=== PATIENT | male | born 1950 | race Two or more races ===

== ENCOUNTER 2018-06-06 16:14 | Inpatient (IN) | payer OTHER, MEDICARE ==
[~2018-06-06] VITALS: Ht 182.9 cm; Wt 76.7 kg
--- NOTE | 2018-06-06 16:20 | NUR ---
pt bibra to er bed 05. per report, possible syncopal episode. upon ems arrival pt was already up and went to his trailer. pt denies cp, or any medical discomfort. vss. awaiting md kraus.
--- NOTE | 2018-06-06 16:22 | NUR ---
dr chen at bedside for eval.
[2018-06-06 16:50] LABS: BASOPHILS % (AUTO) 0.3 % (0.0-2.0); EOSINOPHILS % (AUTO) 1.2 % (0.0-6.0); HEMATOCRIT 35 % (39-51); HEMOGLOBIN 12.2 g/dL (13.5-17.5); LYMPHOCYTES # (AUTO) 1.7 /CMM (0.8-4.8); LYMPHOCYTES % (AUTO) 22.7 % (20.0-44.0); MEAN CORPUSCULAR HEMOGLOBIN 30 PG (26.0-33.0); MEAN CORPUSCULAR HGB CONC 34 g/dl (31.0-36.0); MEAN CORPUSCULAR VOLUME 86 fL (80-96); MONOCYTES # (AUTO) 0.4 /CMM (0.1-1.30); MONOCYTES % (AUTO) 5.1 % (2.0-12.0); NEUTROPHILS # (AUTO) 5.4 /CMM (1.8-8.9); NEUTROPHILS % (AUTO) 70.7 % (43.0-81.0); PLATELET COUNT (AUTO) 250 /CMM (150-450); RED BLOOD CELL COUNT(AUTO) 4.11 MIL/uL (4.5-6.0); WHITE BLOOD COUNT (AUTO) 7.6 K/uL (4.3-11.0)
--- NOTE | 2018-06-06 16:55 | NUR ---
pt to radiology for head ct scan via [facility].
[2018-06-06 17:01] LABS: CALCIUM, SERUM 8.3 mg/dL (8.5-10.1); CARBON DIOXIDE 20 mmol/L (21-32); CHLORIDE 107 mmol/L (98-107); CREATININE 4.7 mg/dL (0.6-1.3); GLUCOSE 136 mg/dL (74-106); POTASSIUM 4.5 mmol/L (3.5-5.1); SODIUM SERUM 138 mmol/L (136-145); UREA NITROGEN, BLOOD 58 mg/dL (7-18)
[2018-06-06 17:05] LABS: INR 1.03 (0.85-1.15)
[2018-06-06 17:07] LABS: ALANINE AMINOTRANSFERASE 15 U/L (12-78); ALBUMIN 3.3 g/dL (3.4-5.0); ALKALINE PHOSPHATASE 44 U/L (46-116); ASPARTATE AMINOTRANSFERASE 18 U/L (15-37); BILIRUBIN,DIRECT 0.1 mg/dL (0.0-0.2); BILIRUBIN,TOTAL 0.2 mg/dL (0.2-1.0); TOTAL PROTEIN, SERUM 6.7 g/dL (6.4-8.2)
[2018-06-06 17:09] LABS: TROPONIN I < 0.017 ng/mL (0.00-0.056)
[2018-06-06 17:19] LABS: ALCOHOL, BLOOD < 3 mg/dL (0-0); MAGNESIUM 2.2 mg/dL (1.8-2.4)
--- NOTE | 2018-06-06 17:40 | NUR ---
pt still unable to plrovide urine sample. urinal left at bedside.
--- NOTE | 2018-06-06 19:30 | NUR ---
DR CRISTIANA KOHLI FOR PANEL ADMISSION
--- NOTE | 2018-06-06 19:57 | NUR ---
PT ASSIGNED TELE [id number]
--- NOTE | 2018-06-06 20:09 | NUR ---
report given to daria. pt awaiting transfer to floor.
[2018-06-06] MEDS ORDERED: IV NS 0.9% 1,000 ML IV PRN (20:17)
[2018-06-06] MEDS ORDERED: HYDROCODONE/APAP 5/325MG 1 EACH TABLET PO PRN (20:30)
[2018-06-06] MEDS ORDERED: ONDANSETRON HCL/PF 4 MG/2 ML VIAL IVP PRN (20:30)
[2018-06-06] MEDS ORDERED: MORPHINE SULFATE INJ 2 MG/ML DISP.SYRIN IV PRN (20:30)
[2018-06-06] MEDS ORDERED: MAGNESIUM HYDROXIDE 30 ML UDC PO PRN (20:30)
[2018-06-06] MEDS ORDERED: ZOLPIDEM TARTRATE 5 MG TABLET PO PRN (20:30)
[2018-06-06] MEDS ORDERED: Z GUARD REMEDY 2 OZ OINT TP PRN (20:30)
[2018-06-06] MEDS ORDERED: MAG HYDROX/AL HYDROX/SIMETH 30 ML UDC PO PRN (20:30)
[2018-06-06 21:30] VITALS: BP 143/73
--- NOTE | 2018-06-06 21:35 | NUR ---
ANTIQUE CLOCK REPAIRER NOTES STARTED ON IVF NS 1LITER @ 75ML/HR RATE,INFUSING VIA IV PUMP ON LEFT AC.
--- NOTE | 2018-06-06 21:57 | NUR ---
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
--- NOTE | 2018-06-06 22:30 | NUR ---
INDUSTRY SEGMENT SPECIALIST NOTES SEEN BY DR ZENDEJAS,NO NEW ORDERS.
[2018-06-07 04:00] VITALS: BP 123/71
[2018-06-07 06:27] LABS: BASOPHILS % (AUTO) 0.3 % (0.0-2.0); EOSINOPHILS % (AUTO) 1.1 % (0.0-6.0); HEMATOCRIT 37 % (39-51); HEMOGLOBIN 12.2 g/dL (13.5-17.5); LYMPHOCYTES # (AUTO) 1.9 /CMM (0.8-4.8); LYMPHOCYTES % (AUTO) 18.7 % (20.0-44.0); MEAN CORPUSCULAR HEMOGLOBIN 30 PG (26.0-33.0); MEAN CORPUSCULAR HGB CONC 34 g/dl (31.0-36.0); MEAN CORPUSCULAR VOLUME 89 fL (80-96); MONOCYTES # (AUTO) 0.6 /CMM (0.1-1.30); MONOCYTES % (AUTO) 5.4 % (2.0-12.0); NEUTROPHILS # (AUTO) 7.7 /CMM (1.8-8.9); NEUTROPHILS % (AUTO) 74.5 % (43.0-81.0); PLATELET COUNT (AUTO) 243 /CMM (150-450); RDW COEFFICIENT OF VARIATION 17.5 (11.5-15.0); RED BLOOD CELL COUNT(AUTO) 4.09 MIL/uL (4.5-6.0); WHITE BLOOD COUNT (AUTO) 10.3 K/uL (4.3-11.0)
[2018-06-07 06:49] LABS: CALCIUM, SERUM 7.9 mg/dL (8.5-10.1); CREATININE 3.3 mg/dL (0.6-1.3); MAGNESIUM 2.2 mg/dL (1.8-2.4); PHOSPHORUS 3.7 mg/dL (2.5-4.9); POTASSIUM 4.9 mmol/L (3.5-5.1)
--- NOTE | 2018-06-07 07:04 | NUR ---
VISUAL SPECIALIST NOTES FAIRLY RESTED SINCE ADMISSION.DENIES PAIN,NO SOB,SINUS ON TELE MONITOR.IN NO ACUTE DISTRESS.WILL ENDORSE TO DAY NURSE FOR POOJA
[2018-06-07 08:00] VITALS: BP 134/70
--- NOTE | 2018-06-07 08:00 | NUR ---
mechanical engineering advisor Notes Pt in bed at lowest position, A/O x3, peripheral IV intact, no SOB or acute distress, denies pain. Call light within reach, will continue to monitor.
[2018-06-07] MEDS: PANTOPRAZOLE 40 MG TABLET.DR PO SCH (08:06)
[2018-06-07] MEDS: IV NS 0.9% 1,000 ML IV PRN ×3 (08:10→23:06)
[2018-06-07 08:51] LABS: THYROID STIMULATING HORMONE 0.796 uIU/mL (0.358-3.74)
[2018-06-07] MEDS ORDERED: HYDR25TA4 PO (08:54)
[2018-06-07] MEDS ORDERED: ASPI-1169 PO (08:54)
[2018-06-07] MEDS ORDERED: LISI40TA4 PO (08:54)
[2018-06-07 10:00] VITALS: BP_SYST 117; BP_SYST 121; BP_SYST 123; BP_DIAS 61; BP_DIAS 64; BP_DIAS 65
--- NOTE | 2018-06-07 11:13 | NUR ---
Social service consult requested by Dr. Schaefer for homeless-lives in his car. Pt. is a 68 year old male who was admitted to [facility] for syncope. SW met with pt. beside. Pt. is Iranian speaking. Pt is alert and oriented x 4. Pt. is very friendly and cooperative with SW during the assessment. SW had RN Gail assist in translation. Pt. states he lives with his in [facility] in a home located at [address] [place] [address]. However, pt. stays home at times or travels and lives in his van at times which has a fridge and other amenities. 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 Pt's lifestyle includes being on the road. Pt. states he goes fishing or hangs out and plays chess with other Armenians he finds on his way while traveling. Pt's Joceline lives in [facility] for some months and [place] for the rest of the other months. Pt. receives approximately $980 per month in social security income. Pt's emergency contact is his Joceline . Pt. states he does not need any social service resources at this time. RJ updated [facility] GINA Burdick with the aforementioned information. No other social service needs are requested at this time. SW is available, if needed.
[2018-06-07 11:33] LABS: APPEARANCE,URINE CLEAR (CLEAR); BILIRUBIN,URINE NEGATIVE (NEGATIVE); BLOOD, URINE 1+ Ery/uL (NEGATIVE); COLOR,URINE YELLOW (YELLOW); KETONES,URINE NEGATIVE (NEGATIVE); LEUKOCYTE ESTERASE ,URINE NEGATIVE (NEGATIVE); NITRITE, URINE NEGATIVE (NEGATIVE); PH,URINE 5.5 (5.0-8.0); PROTEIN,URINE NEGATIVE (NEGATIVE); UGLUCOSE NEGATIVE (NEGATIVE); UROBILINOGEN,URINE 0.2 EU/dL (0.2)
[2018-06-07 11:55] LABS: BACTERIA,URINE None seen /HPF (None Seen); SQUAMOUS EPITHELIAL CELL,UR None Seen /HPF (None Seen); WBC,URINE 0-2 /HPF (0-3)
[2018-06-07 12:00] VITALS: BP 150/72
[2018-06-07 16:00] VITALS: BP 125/62
--- NOTE | 2018-06-07 16:40 | NUR ---
SOLE POLISHER NOTES PATIENT REPORTS HAVING DIARRHEA X2 ALSO STATES HE HAD ONE EPISODE YESTERDAY BEFORE HOSPITALIZATION. DR. SHEREE JACOBO MADE AWARE ORDERS FOR LOMOTIL 1 PO Q6HRS NEEDED. ORDERS NOTED AND CARRIED OUT. PATIENT ALSO REQUESTING NICOTINE PATCH DR. SHEREE JACOBO ORDERED NICOTINE PATCH EVERY 24HRS 21MG NOTED AND CARRIED OUT.
[2018-06-07] MEDS ORDERED: DIPHENOXYLATE HCL/ATROP SULF 1 UDTAB TABLET PO PRN (17:00)
[2018-06-07] MEDS: NICOTINE PATCH (21MG) 21 MG PATCH.TD24 TD SCH (17:51)
--- NOTE | 2018-06-07 19:15 | NUR ---
MS RN INITIAL NOTES Report received at bedside. Patient received in bed, awake and comfortable. Alert and oriented x3, verbally responsive. Not in any type of distress. Safety measures in place. Bed in lowest position with bed alarm on with call light within reach. Will continue to monitor and assess patient.
--- NOTE | 2018-06-07 19:36 | NUR ---
TURKISH LINE ATTENDANT NOTES PATIENT IN BED RESTING NO SOB OR ACUTE DISTRESS NOTED. ALL DUE MEDICATIONS ADMINISTERED. ALL NEEDS MET ENDORSED CARE TO PM SHIFT.
--- NOTE | 2018-06-07 19:47 | NUR ---
MS TELE INITIAL NOTES Tele monitor shows Sinus Leonard; HR 54
[2018-06-07 20:02] VITALS: BP 137/70
[2018-06-07] MEDS: ACETAMINOPHEN 325 MG TABLET PO PRN (20:29)
--- NOTE | 2018-06-07 20:29 | NUR ---
PREPLEATER - PRN NOTES Patient complained of headache and requested for pain mgmt. Giving tylenol 650mg PO. Will reassess for effectiveness
[2018-06-08 04:00] VITALS: BP 154/76
--- NOTE | 2018-06-08 04:32 | NUR ---
FINGERNAIL FORMER - ORTHOSTATIC B/P LYIN/76 55 18 98.2 95% SITTIN/64 62 STANDIN/72 60
[2018-06-08 04:34] VITALS: BP_SYST 137; BP_SYST 147; BP_SYST 154; BP_DIAS 64; BP_DIAS 72; BP_DIAS 76
[2018-06-08] MEDS: IV NS 0.9% 1,000 ML IV PRN (06:14)
[2018-06-08 06:30] LABS: BILIRUBIN,TOTAL 0.3 mg/dL (0.2-1.0); CREATININE 2.2 mg/dL (0.6-1.3); MAGNESIUM 1.7 mg/dL (1.8-2.4); PHOSPHORUS 2.8 mg/dL (2.5-4.9); POTASSIUM 5.3 mmol/L (3.5-5.1); TOTAL PROTEIN, SERUM 6.2 g/dL (6.4-8.2)
[2018-06-08 06:41] LABS: BASOPHILS % (AUTO) 0.5 % (0.0-2.0); EOSINOPHILS % (AUTO) 1.2 % (0.0-6.0); HEMATOCRIT 35 % (39-51); HEMOGLOBIN 11.9 g/dL (13.5-17.5); LYMPHOCYTES # (AUTO) 2.2 /CMM (0.8-4.8); LYMPHOCYTES % (AUTO) 24.5 % (20.0-44.0); MEAN CORPUSCULAR HEMOGLOBIN 30 PG (26.0-33.0); MEAN CORPUSCULAR HGB CONC 34 g/dl (31.0-36.0); MEAN CORPUSCULAR VOLUME 89 fL (80-96); MONOCYTES # (AUTO) 0.6 /CMM (0.1-1.30); MONOCYTES % (AUTO) 6.5 % (2.0-12.0); NEUTROPHILS # (AUTO) 6.1 /CMM (1.8-8.9); NEUTROPHILS % (AUTO) 67.3 % (43.0-81.0); PLATELET COUNT (AUTO) 236 /CMM (150-450); RDW COEFFICIENT OF VARIATION 17.3 (11.5-15.0); RED BLOOD CELL COUNT(AUTO) 3.96 MIL/uL (4.5-6.0); WHITE BLOOD COUNT (AUTO) 9.1 K/uL (4.3-11.0)
--- NOTE | 2018-06-08 07:11 | NUR ---
WEB SIZER CLOSING NOTES Patient remained in bed, intermittently sleeping, easily aroused and comfortable. Alert and oriented x3, verbally responsive. No SOB noted. Not in any type of distress. Denies any pain. IV on right forearm #22g: patent and intact with NS @200ml/hr running, tolerating well. All needs anticipated and met. Safety measures in place. Bed in lowest position with bed alarm on and call light within reach. Endorsed to oncoming shift nurse, Emily, RN
--- NOTE | 2018-06-08 07:30 | NUR ---
TELE/RN OPENING NOTE PATIENT ALERT AND ORIENTED X4 WITH EPISODES OF FORGETFULNESS. RESPIRATION REGULAR AND UNLABORED. DENIES PAIN. DENIES SOB. PATIENT IN NO APPARENT DISTRESS. RFA G 22 PATENT AND SALINE LOCKED. BED LOW AND LOCKED. SIDE RAILS UP X3. CALL LIGHT WITHIN REACH. WILL CONTINUE TO MONITOR.
[2018-06-08 08:00] VITALS: BP 157/73
[2018-06-08] MEDS: ACETAMINOPHEN 325 MG TABLET PO PRN (08:47)
[2018-06-08] MEDS: NICOTINE PATCH (21MG) 21 MG PATCH.TD24 TD SCH (08:47)
[2018-06-08] MEDS: PANTOPRAZOLE 40 MG TABLET.DR PO SCH (08:47)
--- NOTE | 2018-06-08 08:47 | NUR ---
TELE/RN NOTE PATIENT COMPLIANT OF HEADACHE 02/06. TYLENOL 650 PO GIVEN. WILL CONTINUE TO MONITOR.
[2018-06-08] MEDS: Magnesium 1GM/D5W 100ML PREMIX 100 ML IV SCH ×2 (08:48→10:17)
--- NOTE | 2018-06-08 09:20 | NUR ---
TELE/RN NOTE PATIENT VERBALIZES TYLENOL BEING EFFECTIVE AND DENIES HAVING HEADACHE AT THIS TIME. PATIENT DENIES HAVING ANY PAIN/DISCOMFORT AT THIS TIME.
[2018-06-08 10:30] VITALS: BP 128/75
--- NOTE | 2018-06-08 10:56 | NUR ---
MS/RN NOTE POST RESIDUAL BLADDER SCAN SHOWED 86ML URINE.
--- NOTE | 2018-06-08 11:18 | NUR ---
MS/RN NOTE MATE FIRST ODALIS IS MADE AWARE OF POTASSIUM LEVEL OF 5.2 AND PER MATE FIRST ODALIS NO NEW ORDER. Addendum: 06/08/18 at 1121 by ALEXIS ARANDA RN MS/RN NOTE MATE FIRST ODALIS IS MADE AWARE OF POTASSIUM LEVEL OF 5.3 AND PER MATE FIRST ODALIS NO NEW ORDER.
[2018-06-08 16:00] VITALS: BP 187/81
[2018-06-08] MEDS ORDERED: SODIUM POLYSTYRENE SULFONATE 15 G/60 ML BOTTLE PO ONE (16:00)
--- NOTE | 2018-06-08 18:00 | NUR ---
MS/RN NOTE PATIENT BLOOD PRESSURE 184/85 AND PULSE 61. ROUTE SALES DRIVER ODALIS IS MADE AWARE AND NEW ORDERS ARE OBTAINED. NOTED AND CARRIED OUT.
[2018-06-08] MEDS: HYDROCHLOROTHIAZIDE 25 MG TABLET PO SCH (18:22)
[2018-06-08] MEDS: LISINOPRIL (10MG) 10 MG TABLET PO SCH (18:23)
--- NOTE | 2018-06-08 18:50 | NUR ---
MS/RN CLOSING NOTE PATIENT ALERT AND ORIENTED X4. DENIES SOB. RESPIRATION REGULAR AND UNLABORED. DENIES PAIN. PATIENT IN NO APPARENT DISTRESS. ABLE TO AMBULATE WITH STAND BY ASSIST. PATIENT IS GIVEN VERBAL CUES TO KEEP SAFETY AWARENESS HIGH. RFA G 22 PATENT AND IV FLUID INFUSING WITH NO S/S INFILTRATION. BED LOW AND LOCKED. SIDE RAILS UP X3. CALL LIGHT WITHIN REACH. WILL ENDORSE TO BLIND LACER.
--- NOTE | 2018-06-08 19:30 | NUR ---
RN NOTES RECEIVED PATIENT IN BED AWAKE, AO X 3, ABLE TO MAKE NEEDS KNOWN. NO ACUTE DISTRESS NOTED. DENIES ANY PAIN AT THIS TIME. IV SITE PATENT, INTACT; FLUSHED. SAFETY REMINDERS GIVEN. ON LOW BED WITH BILATERAL UPPER SIDE RAILS UP. CALL LILLY WITHIN EASY REACH. WILL CONTINUE TO MONITOR.
[2018-06-08 20:00] VITALS: BP 165/84
--- NOTE | 2018-06-09 06:00 | NUR ---
RN NOTES PATIENT IN BED ASLEEP, EASILY AROUSABLE. RESPIRATIONS EVEN. NO SIGNS OF PAIN AT THIS TIME. NEEDS ATTENDED. SAFETY PRECAUTIONS AND COMFORT MEASURES IN PLACE. WILL GIVE REPORT TO DAY SHIFT FOR CONTINUITY OF CARE.
[2018-06-09 06:42] LABS: BASOPHILS # (AUTO) 0.1 /CMM (0.0-0.2); BASOPHILS % (AUTO) 0.5 % (0.0-2.0); EOSINOPHILS % (AUTO) 1.8 % (0.0-6.0); HEMATOCRIT 40 % (39-51); HEMOGLOBIN 13.4 g/dL (13.5-17.5); LYMPHOCYTES # (AUTO) 2.4 /CMM (0.8-4.8); LYMPHOCYTES % (AUTO) 21.9 % (20.0-44.0); MEAN CORPUSCULAR HEMOGLOBIN 30 PG (26.0-33.0); MEAN CORPUSCULAR HGB CONC 34 g/dl (31.0-36.0); MEAN CORPUSCULAR VOLUME 89 fL (80-96); MONOCYTES # (AUTO) 0.6 /CMM (0.1-1.30); MONOCYTES % (AUTO) 5.2 % (2.0-12.0); NEUTROPHILS # (AUTO) 7.7 /CMM (1.8-8.9); NEUTROPHILS % (AUTO) 70.6 % (43.0-81.0); PLATELET COUNT (AUTO) 267 /CMM (150-450); RDW COEFFICIENT OF VARIATION 17.3 (11.5-15.0); RED BLOOD CELL COUNT(AUTO) 4.47 MIL/uL (4.5-6.0); WHITE BLOOD COUNT (AUTO) 10.9 K/uL (4.3-11.0)
[2018-06-09 06:44] LABS: ALBUMIN 3.3 g/dL (3.4-5.0); BILIRUBIN,TOTAL 0.4 mg/dL (0.2-1.0); CALCIUM, SERUM 8.7 mg/dL (8.5-10.1); CREATININE 1.7 mg/dL (0.6-1.3); MAGNESIUM 1.9 mg/dL (1.8-2.4); PHOSPHORUS 3.4 mg/dL (2.5-4.9); POTASSIUM 5.1 mmol/L (3.5-5.1)
--- NOTE | 2018-06-09 07:20 | NUR ---
MS/RN OPENING NOTE PATIENT IS RECEIVED IN BED AWAKE. ALERT AND ORIENTED X4. DENIES SOB. RESPIRATION REGULAR AND UNLABORED. PATIENT DENIES PAIN. RFA G 22 PATENT AND IV FLUID INFUSING WITH NO S/S INFILTRATION. BED LOW AND LOCKED. SIDE RAILS UP X3. CALL LIGHT WITHIN REACH. WILL CONTINUE TO MONITOR.
[2018-06-09] MEDS: IV NS 0.9% 1,000 ML IV PRN ×3 (07:27→20:08)
[2018-06-09 08:00] VITALS: BP 160/89
[2018-06-09] MEDS: HYDROCHLOROTHIAZIDE 25 MG TABLET PO SCH (08:29)
[2018-06-09] MEDS: PANTOPRAZOLE 40 MG TABLET.DR PO SCH (08:29)
[2018-06-09] MEDS: NICOTINE PATCH (21MG) 21 MG PATCH.TD24 TD SCH (08:30)
[2018-06-09] MEDS: LISINOPRIL (10MG) 10 MG TABLET PO SCH (08:30)
--- NOTE | 2018-06-09 09:42 | NUR ---
MS/RN NOTE BLOOD PRESSURE SITTING 156/85 AND PULSE 64. BLOOD PRESSURE STANDING 144/76 AND PULSE 67.
[2018-06-09] MEDS: hydrALAZINE HCL 50 MG TABLET PO SCH ×3 (10:30→16:16)
[2018-06-09] MEDS: ISOSORBIDE DINITRATE (20MG) 20 MG TABLET PO SCH ×2 (10:30→16:15)
[2018-06-09 12:18] LABS: PTH, INTACT 38 pg/mL (15-65)
[2018-06-09 15:00] VITALS: BP 118/61
[2018-06-09 16:00] VITALS: BP 118/70
--- NOTE | 2018-06-09 18:26 | NUR ---
MS/RN CLOSING NOTE PATIENT ALERT AND ORIENTED X4. DENIES PAIN, DENIES SOB. RESPIRATION REGULAR AND UNLABORED. RFA G 22 PATENT AND IV FLUID INFUSING WELL WITH NO S/S INFILTRATION. NO SYMPTOMS OF FLUID OVERLOAD NOTED. PATIENT CONTINENT AND ABLE TO AMBULATE. VERBAL CUES ARE GIVEN TO KEEP SAFETY AWARENESS HIGH. GOOD AND GENTLE SKIN CARE RENDERED. ALL NEEDS ATTENDED. BED LOW AND LOCKED. SIDE RAILS UP X3. CALL LIGHT WITHIN REACH. WILL ENDORSE TO OFFSET LITHOGRAPHIC PRESS OPERATOR.
--- NOTE | 2018-06-09 19:00 | NUR ---
URINE COLLECTED, LAB WAS INFORMED FOR OVERHEAD CRANE OPERATOR
--- NOTE | 2018-06-09 19:31 | NUR ---
MS/RN OPENING NOTES RECEIVED PATIENT IN BED, AWAKE, ALERTX3, COOPERATIVE AND CALM, RESPONIVE AND ABLE TO FOLLOW SIMPLE COMMANDS, COMMUNICATED IN URDU BUT CAN MAKE SIMPLE GESTURES AND SIMPLE GESTURE, RESPIRATIONS EVEN AND UNLABORED, ALERT X3, VERBALIZED NEEDS.
[2018-06-09 20:00] VITALS: BP 134/73
[2018-06-09 21:55] LABS: CREATININE, URINE 30.3 MG/DL (30.0-125.0); URINE TOTAL PROTEIN 7.1 mg/dL (0-11.9)
[2018-06-10] MEDS: IV NS 0.9% 1,000 ML IV PRN ×2 (00:43→06:06)
--- NOTE | 2018-06-10 06:31 | NUR ---
312-1/MS/RN NOTES PATIENT ABLE TO SLEEP DURING THE NIGHTS, LAERT X3, ABLE TO VERBALIZE NEEDS, MONITORED FOR ANY S/S OF COMPLICATIONS, ASSIST AND KEEP COMFORTABLE. WILL MONITOR.WILL ENDORSE TO AM RN FOR POOJA
[2018-06-10 07:57] LABS: ALBUMIN 2.9 g/dL (3.4-5.0); BILIRUBIN,TOTAL 0.4 mg/dL (0.2-1.0); CALCIUM, SERUM 7.9 mg/dL (8.5-10.1); CREATININE 1.4 mg/dL (0.6-1.3); MAGNESIUM 1.5 mg/dL (1.8-2.4); PHOSPHORUS 3.1 mg/dL (2.5-4.9); POTASSIUM 4.8 mmol/L (3.5-5.1); TOTAL PROTEIN, SERUM 6.1 g/dL (6.4-8.2)
[2018-06-10 08:00] VITALS: BP 139/73
[2018-06-10 09:15] VITALS: BP 135/70
--- NOTE | 2018-06-10 09:30 | NUR ---
RECEIVED REPORT FROM TONYA METZ PATIENT RESTING IN BED. NONLABORED BREATHING NOTED ON ROOM AIR. AOX4. DENYING PAIN . IV SITE ON LEFT FOREARM PATENT AND INTACT. BED IN LOWEST LOCKED POSITION CALL LIGHT WITHIN REACH
[2018-06-10] MEDS: PANTOPRAZOLE 40 MG TABLET.DR PO SCH (10:06)
[2018-06-10] MEDS: ISOSORBIDE DINITRATE (20MG) 20 MG TABLET PO SCH (10:06)
[2018-06-10] MEDS: NICOTINE PATCH (21MG) 21 MG PATCH.TD24 TD SCH (10:06)
[2018-06-10] MEDS: hydrALAZINE HCL 50 MG TABLET PO SCH ×2 (10:54→13:00)
[2018-06-10] MEDS: Magnesium 1GM/D5W 100ML PREMIX 100 ML IV SCH ×2 (10:54→12:38)
[2018-06-10] MEDS ORDERED: HYDR-4077 PO (11:58)
[2018-06-10] MEDS ORDERED: ISOS20TA8 PO (11:58)
[2018-06-10 13:00] VITALS: BP 130/50
--- NOTE | 2018-06-10 15:00 | NUR ---
RN NOTES: PATIENT DISCHARGED HOME PER DR LINO ORDERS. ALL BELONGINGS GIVEN TO PATIENT.IV LINE REMOVED. EDUCATED PATIENT ON PRESCRIPTION MEDICATIONS, CONTINUED AND STOPPED MEDICATIONS, IMPORTANCE OF FOLLOWING UP WITH PRIMARY HEALTH CARE PROVIDER WITHIN 1 WEEK. PATIENT AMBULATING STEADY THROUGHOUT SHIFT. DENYING DIZZINESS PATIENT REFUSED SKIN PICTURE. NO CHANGES NOTED SINCE ADMISSION PATIENT ACCOMPANIED BY STAFF MEMBER TO TAXI. PATIENT LEFT VIA TAXI TO BE DROPPED OFF AT HIS MOBILE HOME LOCATION
[2018-06-11 08:08] LABS: *SPE A/G RATIO 1.3 (0.7-1.7); *SPE ALBUMIN 3.2 g/dL (2.9-4.4); *SPE ALPHA-1-GLOBULIN 0.2 g/dL (0.0-0.4); *SPE ALPHA-2-GLOBULIN 0.5 g/dL (0.4-1.0); *SPE BETA GLOBULIN 0.8 g/dL (0.7-1.3); *SPE GLOBULIN, TOTAL 2.5 g/dL (2.2-3.9); *SPE M-SPIKE Not Observed g/dL (Not Observed)
== END 2018-06-10 15:00 | disposition home or self-care (01) | DRG 48 ==
LOC: ER 16:18 → TELE 20:29 → MED 06-08 10:02
PROVIDERS: ADMIT Internal Medicine; ATTEND Internal Medicine
DX: G90.8 Other disorders of autonomic nervous system (principal); N17.0 Acute kidney failure with tubular necrosis; E87.2 Acidosis; I12.9 Hypertensive chronic kidney disease with stage 1 through stage 4 chronic kidney disease, or unspecified chronic kidney disease; I25.2 Old myocardial infarction; Z59.0 Homelessness; E86.0 Dehydration; N18.9 Chronic kidney disease, unspecified; Z95.5 Presence of coronary angioplasty implant and graft; I25.10 Atherosclerotic heart disease of native coronary artery without angina pectoris; E83.42 Hypomagnesemia; D64.9 Anemia, unspecified; E87.5 Hyperkalemia; E88.09 Other disorders of plasma-protein metabolism, not elsewhere classified; I95.1 Orthostatic hypotension
CPT/HCPCS: 36415; 70450-TC; 71045-TC; 72125-TC; 76770-TC; 80048-TC; 80053-TC; 80076-TC; 80305; 81000-TC; 82306; 82550-TC; 82570-TC; 82728-TC; 82962-TC; 83540-TC; 83735-TC; 83970; 84100-TC; 84155; 84155-TC; 84165; 84300-TC; 84439-TC; 84443-TC; 84484-TC; 85025-TC; 85730-TC; 87081-TC; 93307-TC; A4606; G0480; J3475; J7030; Z7610